=== PATIENT | female | born 1965 | race Caucasian/White ===

== ENCOUNTER 2021-10-10 10:05 | Outpatient (CLI) | payer BC, SELFPAY ==
--- NOTE | 2021-10-10 10:15 | MM_ITS ---
Final Report Patient: ERIC WYNN Facility:?[facility] Patient ID:[id number] Study:?XRay Breast Bilateral 3D W/CAD-10/10/2021 10:49:07 AM Ordering Physician:Kelli Bean Final Report: BILATERAL MAMMOGRAM WITH COMPUTER-AIDED DETECTION AND TOMOSYNTHESIS TECHNIQUE: CC and MLO views were obtained. These mammographic images have been obtained using full-field digital technique. These mammographic images were interpreted with the benefit of computer-aided detection. Breast Tomosynthesis was used in this interpretation. COMPARISON FILM: 10/09/2020, 10/07/2019, 06/23/2018. FINDINGS: There are scattered areas of fibroglandular density IMPRESSION: There is no radiographic evidence for malignancy. ASSESSMENT: BI-RADS Category 1: Negative RECOMMENDATION: Routine screening mammogram in 1 year. A lay language report of this examination will be provided to the patient. Kristofer Samayoa M.D. Diagnostic/Musculoskeletal Radiologist [email or web address] REJI/[email or web address] Transcribed: 3:37 p.m. ELVIN/Dictated by: Kristofer Samayoa MD @ 10/10/2021 11:45:00 AM (Electronic Signature)
== END 2021-10-10 10:06 | disposition home or self-care (01) ==
LOC: MAMMO 10:06
PROVIDERS: PCP Family Medicine; Visit Provider Emergency Medicine
DX: Z12.31 Encounter for screening mammogram for malignant neoplasm of breast (principal); R92.8 Other abnormal and inconclusive findings on diagnostic imaging of breast
CPT/HCPCS: 77063; 77067

== ENCOUNTER 2022-05-06 07:39 | Outpatient (CLI) | payer BC, SELFPAY ==
[2022-05-06 10:54] LABS: Carbon Dioxide* 28 mmol/L (20-32); Chloride* 106 mmol/L (96-114); Sodium* 140 mmol/L (135-149)
[2022-05-06 10:55] LABS: Alanine Aminotransferase* 19 U/L (4-35); Albumin* 4.5 g/dL (3.3-5.0); Alkaline Phosphatase* 72 U/L (40-150); Aspartate Amino Transferase* 27 U/L (12-35); Bilirubin Total* 0.7 mg/dL (0.1-1.5); Blood Urea Nitrogen* 12 mg/dL (7-30); Calcium* 9.2 mg/dL (8.4-10.6); Cholesterol* 195 mg/dL (90-199); Creatinine* 0.6 mg/dL (0.5-1.5); Estimated Glomerular Filt Rate 106 ml/min; Glucose* 84 mg/dL (60-115); HDL Cholesterol* 86 mg/dL (>=50); LDL Cholesterol Calculated 99 mg/dL (<100); Triglycerides* 51 mg/dL (40-149)
[2022-05-06 11:03] LABS: Potassium* 4.5 mmol/L (3.6-5.1)
== END 2022-05-06 07:40 | disposition home or self-care (01) ==
LOC: NFLDREF 07:40
PROVIDERS: PCP Family Medicine; Visit Provider Family Medicine
DX: Z00.00 Encounter for general adult medical examination without abnormal findings (principal); Z13.6 Encounter for screening for cardiovascular disorders; Z13.29 Encounter for screening for other suspected endocrine disorder
CPT/HCPCS: 80053; 80061; 84443

== ENCOUNTER 2022-10-17 14:58 | Outpatient (CLI) | payer OTHER, SELFPAY ==
--- OUTSIDE RECORDS SUMMARY | 2022-10-17 15:04 | XMS_ITS | Continuity of Care Document ---
Author Name Unknown Organization [facility] Address [address] [place] [address] Phone Care Team Providers Care Eyeglass Assembler Name Role Phone Benjamín Lang MD Unavailable Unavailable Allergies, Adverse Reactions, Alerts Substance Reaction Status Criticality No Known Allergies Active No Inform ation Medications Medication Instructions Dosage Effective Dates (start - stop) Status Comments No Drug Therapy Prescribed Procedures Procedure Date Office/Outpatient Visit,Rory Jones 2015 Advance Directives Directive Yes / No Effective Date File Name No Information Encounters Encounter Description Practice Location Reason(s) For Visit Diagnoses Date Provider Providers Copied on Encounter Office/Outpati ent Visit,[facility] , [address], [place], [place], [id number], [place] tel:[phone] [facility] - [facility] Spinal stenosis, lumbar region Precious Butts. [facility], [address] [address], [place], [place], [id number], [place]. tel:[phone] Referring Provider: Mallory Ponce, [facility] [address] [place], [address]. tel:[phone] Family History Family Member Type Diagnosis Age At Onset Family h/o Problem (finding) Yes Problem (finding) Problem (finding) Problem (finding) Problem (finding) Problem (finding) Problem (finding) Payers Payer name Insurance type Covered libertarian ID Authoriza tion(s) Aetna CI [id number] Social History Type Description Quantity Date Captured Comments Alcohol Use Details Caffeine Use Details Tobacco Use Status Smoking Status Former smoker Non-Smoking Tobacco Use Details cigarettes: Years Used 1 : No Details Available cigarettes: No Details Available : No Details Available Sex Female Vital Signs Date / Time: Height Weight BMI Pulse Rate Blood Pressure Temperature Respiratory Rate Body Surface Area Head Circumference Head Circ. Percentile Wt./Jason. Percentile BMI percentile Pulse Ox Inhaled Ox 1:36 PM 66.00 in 66.406 kg (146.40 lbs) 23.6 3 kg/m eter (2) 81 /min 106/68 mm[Hg] Chief Complaint And Reason For Visit No Information Reason For Referral Reason For Referral No Information Plan Of Treatment Date Type Action Status No Information History Of Present Illness Encounter Date Complaint History Of Prese nt Illness No Information Functional Status Date Functional Assessmen t No Information Medications Administered Medication Instructions Dosage Effective Dates (start - stop) Status Comments No Drug Therapy Prescribed Instructions Date Instruction Additional Infor mation No Information Assessments Type Assessment Date assessment Spinal stenosis, lumbar region O Patient Care Teams Name Effective Dates (start - stop) Status Members No Information
--- NOTE | 2022-10-17 15:20 | CRLHL7_ITS ---
For Patients: As a result of the Century Cures Act, medical imaging exams and procedure reports are released immediately into your electronic medical record. You may view this report before your referring provider. If you have questions, please contact your health care provider. BILATERAL SCREENING MAMMOGRAM WITH COMPUTER-AIDED DETECTION AND TOMOSYNTHESIS TECHNIQUE: CC and MLO views were obtained. These mammographic images have been obtained using full-field digital technique. These mammographic images were interpreted with the benefit of computer-aided detection. Breast Tomosynthesis was used in this interpretation. COMPARISON FILM: 10/10/21, 10/09/20, 10/07/19. FINDINGS: There are scattered areas of fibroglandular density IMPRESSION: There is no radiographic evidence for malignancy. ASSESSMENT: BI-RADS Category 1: Negative RECOMMENDATION: Routine screening mammogram in 1 year. A lay language report of this examination will be provided to the patient. Spencer Barr M.D. Diagnostic Radiologist [email or web address] ELVIN/Dictated by: Spencer Barr MD @ 10/18/2022 12:09:00 PM (Electronically Signed)
== END 2022-10-17 14:59 | disposition home or self-care (01) ==
LOC: MAMMO 15:02
PROVIDERS: PCP Family Medicine; Visit Provider Family Medicine
DX: Z12.31 Encounter for screening mammogram for malignant neoplasm of breast (principal)
CPT/HCPCS: 77063; 77067

== ENCOUNTER 2023-05-06 07:46 | Outpatient (CLI) | payer OTHER, SELFPAY ==
--- OUTSIDE RECORDS SUMMARY | 2023-05-08 12:56 | XMS_ITS | Clinical Summary ---
Author Name Unknown Organization [employer] [facility] Address [place], [place] [address] Care Team Providers Care Lubrication Equipment Servicer Name Role Phone Mallory Castanon MD Primary Care Provider + Allergies No known active allergies Medications No known medications Immunizations Name Administration Dates Next Due AMB Influenza, IIV4 PF (=>6 mos Flulaval,Fluzone Fluarix)(Flu Clinic Only) 01/06/2015 Influenza A (H1N1), Inactiva araceli (Age >=3 Years) 05/23/2009 Influenza, IIV3 (Age >=3 years) 03/04/2013,01/19,01/31/2007 Influenza,LAIV4 Live Intrana harshil (Flumist) 02/08/2012,01/20/2011,01/31/2010,2007 Td (Age >=7 Years) 04/13/2002 Tdap 06/18/2011 Family History Medical History Relation Name Comments Diabetes Father Heart Disease Father Diabetes Maternal Grandfather Other Mother Cancer-breast Paternal Aunt Cancer-breast Paternal Grandmother Relation Name Status Comments Father Maternal Grandfather Mother Paternal Aunt Paternal Grandmother Social History Tobacco Use Types Packs/Day Years Used Date Smoking Tobacco: Never Smokeless Tobacco: Never Tobacco Cessation:Counseling Given: Yes Sex and Gender Information Value Date Recorded Sex Assigned at Not on file Gender Identity Not on file Sexual Orientation Not on file Obstetrics History Last Filed Vital Signs Vital Sign Reading Time Taken Comments Blood Pressure 113/77 04/04/2015 4:34 PM PHOTOLETTERING MACHINE OPERATOR Pulse 70 04/04/2015 4:34 PM PHOTOLETTERING MACHINE OPERATOR Temperature 36.9 ??C (98.5 ??F) 04/04/2015 4:34 PM CS T Respiratory Rate - - Oxygen Saturation 99% 04/04/2015 4:34 PM PHOTOLETTERING MACHINE OPERATOR Inhaled Oxygen Concentration - - Weight 65.8 kg (145 lb) 04/04/2015 4:34 PM PHOTOLETTERING MACHINE OPERATOR Height 165.1 cm (5' 5) 12/28/2014 10:15 AM CDT Body Mass Index 24.13 12/28/2014 10:15 AM CDT Plan of Treatment Health Maintenance Due Date Last Done Comments COVID-19 vaccine series (#1) 04/06/1967 Depression screening for age 12+ 1978 HIV for age 15-65 1981 BMI (ht and wt on same day) for age 18+ 1984 Hepatitis C screening for age 18-79 1984 Colonoscopy through age 75 10/06/2011 Lipids for age 45-75 10/06/2011 Mammogram for age 45-75 02/25/2016 02/25/20 15, 02/21/2014, 10/07/2011 Zoster (shingles) series for age 50+ (1 of 2) 2016 Pap test for age 21-65 03/17/2021 8, 03/17/2018, 12/28/2014, Additional history exists Tetanus booster 06/17/2021 06/18/2011, 04/13/2002 Influenza for age 50-64 12/13/2022 01/07/20 15, 03/04/2013, 05/23/2009, Additional history exists Tdap Completed 06/18/2011 Pneumococcal series for age 6-64 Aged Out No longer eligible based on patient's age to complete this topic Care Teams Lubrication Equipment Servicer Relationship Specialty Start Date End Date Mallory Castanon MD [address] [place] [address] PCP - General Family Practice 03/01/16
--- OUTSIDE RECORDS SUMMARY | 2023-05-08 12:56 | XMS_ITS | Continuity of Care Document ---
Author Name Unknown Organization [facility] Address [address] [place] [address] Phone Care Team Providers Care Operations Specialist Name Role Phone Benjamín Lang MD Unavailable [...] Provider Providers Copied on Encounter Office/Outpati ent Visit,[facility] , [address], [place], [place], [id number], [place] tel:[phone] [facility] - [facility] Spinal stenosis, lumbar region Precious Butts. [facility], [address] [address], [place], [place], [id number], [place]. tel:[phone] Referring Provider: Mallory Ponce, [facility] [address] [place], [address]. tel:[phone] Family History Family Member Type Diagnosis Age At Onset Family h/o Problem (finding) Yes Problem (finding) Problem (finding) Problem (finding) Problem (finding) Problem (finding) Problem (finding) Payers Payer name Insurance type Covered republican ID Authoriza tion(s) Aetna CI [id number] Social History Type Description Quantity Date Captured [...] For Referral Reason For Referral No Information History Of Present Illness Encounter [...]
== END 2023-05-06 07:47 | disposition home or self-care (01) ==
LOC: NFLDREF 05-08 12:40
PROVIDERS: PCP Family Medicine; Referring Provider Family Medicine; Visit Provider Family Medicine
DX: Z13.220 Encounter for screening for lipoid disorders (principal); Z83.3 Family history of diabetes mellitus
CPT/HCPCS: 80061; 82947

== ENCOUNTER 2023-10-22 10:03 | Outpatient (CLI) | payer OTHER, SELFPAY ==
--- OUTSIDE RECORDS SUMMARY | 2023-10-22 10:05 | XMS_ITS | Clinical Summary ---
Author Organization [facility] Address [place], [place] [address] Care Team Providers Care Adobe Developer Name Role Phone Mallory Castanon MD Primary [...] Comments Blood Pressure 113/77 04/04/2015 4:34 PM MANUFACTURING LEAD Pulse 70 04/04/2015 4:34 PM MANUFACTURING LEAD Temperature 36.9 ??C (98.5 ??F) 04/04/2015 4:34 PM CS T Respiratory Rate - - Oxygen Saturation 99% 04/04/2015 4:34 PM MANUFACTURING LEAD Inhaled Oxygen Concentration - - Weight 65.8 kg (145 lb) 04/04/2015 4:34 PM MANUFACTURING LEAD Height 165.1 cm (5' 5) 12/28/2014 10:15 AM CDT Body Mass Index 24.13 12/28/2014 10:15 AM CDT Plan of Treatment Health Maintenance Due Date Last Done Comments Depression screening for age 12+ 1978 HIV for age 15-65 1981 BMI (ht and wt on same day) for age 18+ 1984 Hepatitis C screening for age 18-79 1984 Colonoscopy through age 75 10/06/2011 Lipids for age 45-75 10/06/2011 Mammogram for age 45-75 02/25/2016 02/25/20 15, 02/21/2014, 10/07/2011 Zoster (shingles) series for age 50+ (1 of 2) 2016 Tetanus booster 06/17/2021 06/18/2011, 04/13/2002 COVID-19 vaccine series (2022-24 season) 2022 Influenza for age 50-64 12/14/2023 01/07/20 15, 03/04/2013, 05/23/2009, Additional history exists Pap test for age 21-65 05/15/2026 , 05/15/2023, 03/17/2018, Additional history exists Tdap Completed 06/18/2011 Pneumococcal series for age 6-64 Aged Out No longer eligible based on patient's age to complete this topic Procedures Procedure Name Priority Date/Time Associated Diagnosis Comments HPV THIN PREP Routine 05/15/2023 1:10 PM MANUFACTURING LEAD XR MAMMO BILAT SCREEN FFDM (IA) Routine 02/24/2015 9:38 AM MANUFACTURING LEAD Other screening mammogram from Last 3 Months or Most Recently Relevant to Health Maintenance Results * HPV HIGH RISK (05/15/2023 1:10 PM MANUFACTURING LEAD) TYPE 16 Negative Negative 05/20/2023 4:46 PM MANUFACTURING LEAD [facility] TR[facility] TYPE 18 Negative Negative 05/20/2023 4:46 PM MANUFACTURING LEAD [facility] OTHER HIGH RISK TYPES Negative Negative 05/20/2023 4:46 PM MANUFACTURING LEAD [facility] Other (Cervical/Vagina l) 05/15/2023 1:10 PM MANUFACTURING LEAD 05/16/2023 5:18 PM MANUFACTURING LEAD Narrative [facility] - 05/20/2023 4:46 PM MANUFACTURING LEAD HPV types 16, 18, 31, 33, 35, 39, 45, 51, 52, 56, 58, 59, 66 and 68 DNA were undetectable or below the pre-set threshold. Methodology: Flo Chuck 4800 HPV Test Mallory Castanon MD [facility] [address] [place] [address], [place] * XR MAMMO BILAT SCREEN FFDM (02/24/2015 9:38 AM MANUFACTURING LEAD) Anatomical Region Laterality Modality BREASTS, Breast Left, Breast Right Bilateral Mammography Impressions 02/24/2015 12:14 PM MANUFACTURING LEAD ??There is no radiographic evidence for malignancy. ??Recommend annual mammograms. A lay language report of this examination will be provided to the patient. MAMMOGRAM ASSESSMENT: ??ACR 2 Benign Narrative 02/24/2015 12:14 PM MANUFACTURING LEAD XR MAMMO BILAT SCREEN FFDM [G0202.0] CLINICAL HISTORY: ??This is an asymptomatic 49 y.o. patient. INDICATION FOR EXAM: Mammogram Screening. TECHNIQUE: CC & MLO views were obtained. ??This digital study was evaluated with the assistance of Computer-Aided Detection. COMPARISON FILMS: Yes 02/21/14 [facility] FINDINGS: ??Mammographically, the breast tissue has scattered fibroglandular densities. ??No suspicious masses or microcalcifications. ?? Benign appearing calcifications within both breasts and Benign appearing asymmetry within right breast. Tracy Garcia DO MAMMO from Last 3 Months or Most Recently Relevant to Health Maintenance Care Teams Adobe Developer Relationship Specialty Start Date End Date Mlalory Castanon MD [address] [place] [address] PCP - General Family Practice 03/01/16
--- OUTSIDE RECORDS SUMMARY | 2023-10-22 10:05 | XMS_ITS | Continuity of Care Document ---
Author Organization [facility] Address [address] [place] [address] Phone Care Team Providers Care Gaming Manager Name Role Phone Benjamín Lang MD Unavailable Unavailable Allergies, Adverse Reactions, Alerts Substance Reaction Status Criticality No Known Allergies Active No Inform ation Medications Medication Instructions Dosage Effective Dates (start - stop) Status Comments No Drug Therapy Prescribed Procedures Procedure Date Office/Outpatient Visit,RobertRory 2015 Advance Directives Directive Yes / No Effective Date File Name No Information Encounters Encounter Description Practice Location Reason(s) For Visit Diagnoses Date Provider Providers Copied on Encounter Office/Outpati ent Visit,[facility] , [address], [place], [place], [id number], [place] tel:[phone] [facility] - [facility] Spinal stenosis, lumbar region Precious Butts. [facility], [address] [place] [address], [place], [place], [id number], [place]. tel:[phone] Referring Provider: Mallory Ponce, [facility] [address] [place], [address]. tel:[phone] Family History Family Member Type Diagnosis Age At Onset Family h/o Problem (finding) Yes Problem (finding) Problem (finding) Problem (finding) Problem (finding) Problem (finding) Problem (finding) Payers Payer name Insurance type Covered alliance party ID Authoriza tion(s) Aetna CI [id number] Social History Type Description Quantity Date Captured [...]
--- NOTE | 2023-10-22 10:15 | CRLHL7_ITS ---
For Patients: As a result of the Century Cures Act, medical imaging exams and procedure reports are released immediately into your electronic medical record. You may view this report before your referring provider. If you have questions, please contact your health care provider. BILATERAL SCREENING MAMMOGRAM WITH COMPUTER-AIDED DETECTION AND TOMOSYNTHESIS TECHNIQUE: CC and MLO views were obtained. These mammographic images have been obtained using full-field digital technique. These mammographic images were interpreted with the benefit of computer-aided detection. Breast Tomosynthesis was used in this interpretation. COMPARISON FILM: 10/17/22, 10/10/21, 10/09/20. FINDINGS: There are scattered areas of fibroglandular density. IMPRESSION: There is no radiographic evidence for malignancy. ASSESSMENT: BI-RADS Category 1: Negative RECOMMENDATION: Routine screening mammogram in 1 year. A lay language report of this examination will be provided to the patient. Jose M Gregg M.D. Diagnostic/Nuclear Medicine Radiologist [email or web address] ELLA/princess SP/Dictated by: Jose M Gregg MD @ 10/23/2023 10:45:00 AM (Electronically Signed)
== END 2023-10-22 10:04 | disposition home or self-care (01) ==
PROVIDERS: PCP Family Medicine; Visit Provider Family Medicine
DX: Z12.31 Encounter for screening mammogram for malignant neoplasm of breast (principal)
CPT/HCPCS: 77063; 77067

== ENCOUNTER 2024-05-17 09:35 | Outpatient (CLI) | payer BC, SELFPAY | END 2024-05-17 09:36 | disposition home or self-care (01) | LOC: NFLDREF 05-19 00:45 | PROVIDERS: PCP Family Medicine; Referring Provider Family Medicine; Visit Provider Family Medicine | DX: E78.00 Pure hypercholesterolemia, unspecified (principal); Z13.1 Encounter for screening for diabetes mellitus | CPT/HCPCS: 80061; 82947 ==

== ENCOUNTER 2024-06-17 07:30 | Outpatient (RCR) | payer BC, OTHER, SELFPAY ==
--- OUTSIDE RECORDS SUMMARY | 2024-04-15 08:06 | XMS_ITS | Continuity of Care Document ---
Author Name [facility]IN User [email or web address] Address Unknown Organization Unknown Address Unknown Procedures FILTER APPLIED:Only known Procedures with Onset Date within the last 5 years Procedure Date Procedure Provider Additional Inform ation Status ASSAY GLUCOSE BLOOD QUANT (69261) Completed LIPID PANEL (51711) Comp leted Encounters FILTER APPLIED:Only known Encounters with Admission Date within the last 5 years Encounter Location Admission Discharge Billing Code [employer] Chandni cooper Outpatient Diana Castanon Outpatient Diana Castanon
--- OUTSIDE RECORDS SUMMARY | 2024-04-15 08:07 | XMS_ITS | Clinical Summary ---
Author Organization [employer] [facility] Address [place], [place] [address] Care Team Providers Care Logistics Analytics Manager Name Role Phone Mallory Castanon MD Primary [...] Smokeless Tobacco: Never Tobacco Cessation:Counseling Given: Yes Comments No Sex and Gender Information Value Date Recorded Sex Assigned at Not on file Legal Sex Female 8:18 AM SPRUE KNOCKER Gender Identity Not on file Sexual Orientation Not on file Obstetrics History Last Filed Vital Signs Vital Sign Reading Time Taken Comments Blood Pressure 113/77 04/04/2015 4:34 PM SPRUE KNOCKER Pulse 70 04/04/2015 4:34 PM SPRUE KNOCKER Temperature 36.9 C (98.5 F) 04/04/2015 4:34 PM SPRUE KNOCKER Respiratory Rate - - Oxygen Saturation 99% 04/04/2015 4:34 PM SPRUE KNOCKER Inhaled Oxygen Concentration - - Weight 65.8 kg (145 lb) 04/04/2015 4:34 PM SPRUE KNOCKER Height 165.1 cm (5' 5) 12/28/2014 10:15 AM CDT Body Mass Index 24.13 12/28/2014 10:15 AM CDT Plan of Treatment Health Maintenance Due Date Last Done Comments Depression screening for age 12+ 1978 HIV for age 15-65 1981 BMI (ht and wt on same day) for age 18+ 1984 Hepatitis C screening for ag e 18-79 1984 Colonoscopy through age 75 10/06/2011 Lipids for age 45-75 10/06/2011 Mammogram for age 45-75 02/25/2016 02/25/20 15, 02/21/2014, 10/07/2011 Pneumococcal series for age 50+ (1 of 1 - PCV) 2016 Zoster (shingles) series for age 50+ (1 of 2) 2016 Tetanus booster 06/17/2021 06/18/2011, 04/13/2002 COVID-19 vaccine series ( season) 2023 Influenza for age 50-64 12/14/2023 01/07/20 15, 03/04/2013, 05/23/2009, Additional history exists Pap test for age 21-65 05/15/2026 4, 05/15/2023, 03/17/2018, Additional history exists Tdap Completed 06/18/2011 Procedures Procedure Name Priority Date/Time Associated Diagnosis Comments SEAM RUBBING MACHINE OPERATOR THIN PREP PAP SCREEN IMAGED Routine 05/15/2023 1:10 PM SPRUE KNOCKER XR MAMMO BILAT SCREEN FFDM (IA) Routine 02/24/2015 9:38 AM SPRUE KNOCKER Other screening mammogram from Last 3 Months or Most Recently Relevant to Health Maintenance Results * SEAM RUBBING MACHINE OPERATOR THIN PREP PAP SCREEN IMAGED (05/15/2023 1:10 PM SPRUE KNOCKER) Case Report Gynecologic Cytology Report Case: [id number] Authorizing Provider: Mallory Castanon MD Collected: 05/15/2023 1310 Ordering Location: [facility] Received: 05/16/2023 1718 First Screen: Kenny Chu Rescreen: Ingrid Ford Specimen: SEAM RUBBING MACHINE OPERATOR ThinPrep Vial Screening, Cervical/Vaginal [facility]2023 [facility] INTERPRETATION/ RESULT NEGATIVE FOR INTRAEPITHELIAL LESION OR MALIGNANCY (NIL) (none) 05/27/2023 10:24 AM SPRUE KNOCKER [facility] [place] [facility] IMEN ADEQUACY Satisfactory for evaluation Endocervical cells cannot be evaluated due to severe atrophy Scant cellularity 05/27/2023 10:[address] [facility] [place] [facility] HPV REQUEST HPV and PAP 05/27/2023 10:24 AM [facility] Last Pap Date 03/21/2018 05/27/2023 10:24 AM SPRUE KNOCKER [facility] [place] [facility] Last Pap Result NIL 10:24 AM SPRUE KNOCKER [facility] [place] [facility] Abnormal Pap or Turney Bx in last 5 years No 05/27/2023 10:24 AM SPRUE KNOCKER [facility] Turney Bx Done Today No 05/27/2023 10:[address] [facility] [place] [facility] Additional Information 05/27/2023 10:[address] [facility] [place] [facility] Comment: Interpreted at [facility] Central Laboratory - [address], [place] [address] Automated Review Successful 05/27/2023 10:[address] [facility] [place] [facility] Comment:Specimen processed s uccessfully by automated flight manager device, ThinPrep Imaging System, [employer] ANCILLARY TESTING SEAM RUBBING MACHINE OPERATOR HPV Ordered, Please see separate report 05/27/2023 10:[address] [facility] [place] [facility] Note The pap test is a screening technique, not a diagnostic procedure. It is used primarily to screen for squamous cancers and precursor lesions. Published studies have shown that it is subject to both false negative and false positive results. The pap test should not be used as the sole means to diagnose or exclude pre-malignant and malignant lesions. 05/27/2023 10:24 AM SPRUE KNOCKER [facility] EN[facility]AL LABORATORY Other (Cervical/Vagina l) 05/15/2023 1:10 PM SPRUE KNOCKER 05/16/2023 5:18 PM SPRUE KNOCKER Mallory Castanon MD PATHOLOGY/CYTOLOGY Final Result [facility] [address] [place] [address], [place] * XR MAMMO BILAT SCREEN FFDM (02/24/2015 9:38 AM SPRUE KNOCKER) Anatomical Region Laterality Modality BREASTS, Breast Left, Breast Right Bilateral Mammography Impressions 02/24/2015 12:14 PM SPRUE KNOCKER There is no radiographic evidence for malignancy. Recommend annual mammograms. A lay language report of this examination will be provided to the patient. MAMMOGRAM ASSESSMENT: ACR 2 Benign Narrative 02/24/2015 12:14 PM SPRUE KNOCKER XR MAMMO BILAT SCREEN FFDM [G0202.0] CLINICAL HISTORY: This is an asymptomatic 49 y.o. patient. INDICATION FOR EXAM: Mammogram Screening. TECHNIQUE: CC & MLO views were obtained. This digital study was evaluated with the assistance of Computer-Aided Detection. COMPARISON FILMS: Yes 02/21/14 [facility] FINDINGS: Mammographically, the breast tissue has scattered fibroglandular densities. No suspicious masses or microcalcifications. Benign appearing calcifications within both breasts and Benign appearing asymmetry within right breast. Tracy Garcia DO MAMMO Final Resu lt from Last 3 Months or Most Recently Relevant to Health Maintenance Care Teams Logistics Analytics Manager Relationship Specialty Start Date End Date Mallory Castanon MD [address] [place] [address] PCP - General Family Practice 03/01/16
== END 2024-07-19 11:41 | disposition home or self-care (01) ==
PROVIDERS: PCP Family Medicine; Visit Provider Family Medicine
DX: M25.561 Pain in right knee (principal); M62.81 Muscle weakness (generalized); R26.9 Unspecified abnormalities of gait and mobility; Z51.89 Encounter for other specified aftercare
CPT/HCPCS: 97110; 97140; 97161

== ENCOUNTER 2024-10-26 09:00 | Outpatient (CLI) | payer BC, SELFPAY ==
--- NOTE | 2024-10-26 09:15 | CRLHL7_ITS ---
For Patients: As a result of the Century Cures Act, medical imaging exams and procedure reports are released immediately into your electronic medical record. You may view this report before your referring provider. If you have questions, please contact your health care provider. INDICATION: BILATERAL SCREENING MAMMOGRAM, ASYMPTOMATIC 59 Y/O FEMALE COMPARISON: 10/22/2023, 10/17/2022, 09/20/2021 TECHNIQUE: Digital mammogram in CC and MLO projections including computer-aided detection (CAD) and tomosynthesis. BREAST COMPOSITION: There are scattered areas of fibroglandular density. FINDINGS: No suspicious findings. ASSESSMENT: BI-RADS 1 Negative RECOMMENDATION: Annual screening mammogram. A lay language report of this examination will be provided to the patient. Dictated by: Spencer Barr MD @ 10/26/2024 12:14:46 (Electronically Signed)
== END 2024-10-26 09:01 | disposition home or self-care (01) ==
LOC: MAMMO 09:00
PROVIDERS: PCP Family Medicine; Visit Provider Family Medicine
DX: Z12.31 Encounter for screening mammogram for malignant neoplasm of breast (principal)
CPT/HCPCS: 77063; 77067